=== PATIENT | male | born 1960 | race African-American/Black ===

== ENCOUNTER 2020-01-04 08:05 | Outpatient (CLI) | payer BC, OTHER ==
--- NOTE | 2020-01-04 08:42 | ULT ---
Sonogram right upper quadrant HISTORY: Right upper quadrant pain. FINDINGS: Gallbladder has a normal appearance without stones. No gallbladder wall thickening or peric holecystic fluid. Common duct is 0.4 cm. Liver is diffusely echogenic without focal mass or intrahepatic biliary dilatation. No free fluid. IMPRESSION: No evidence of gallstones or biliary obstruction. Hepatosteatosis.
== END 2020-01-04 08:06 | disposition home or self-care (01) ==
LOC: BICULT 08:05
PROVIDERS: ATTEND Family Medicine
DX: R10.11 Right upper quadrant pain (principal); K76.0 Fatty (change of) liver, not elsewhere classified
CPT/HCPCS: 93975

== ENCOUNTER 2021-02-14 17:36 | Emergency (ER) | payer OTHER ==
[2021-02-14] MEDS ORDERED: Boostrix 0.5 ML (Tdap) VIAL ONE (17:49)
[2021-02-14] MEDS ORDERED: Acetaminophen 500 MG TAB ONE (17:49)
== END 2021-02-14 19:23 | disposition home or self-care (01) ==
LOC: ERS 17:36
DX: S39.012A Strain of muscle, fascia and tendon of lower back, initial encounter (principal); S16.1XXA Strain of muscle, fascia and tendon at neck level, initial encounter; S40.012A Contusion of left shoulder, initial encounter; E11.9 Type 2 diabetes mellitus without complications; R03.0 Elevated blood-pressure reading, without diagnosis of hypertension; Z79.84 Long term (current) use of oral hypoglycemic drugs; Z23 Encounter for immunization; V89.2XXA Person injured in unspecified motor-vehicle accident, traffic, initial encounter
CPT/HCPCS: 71045; 72125; 72128; 72131; 90471; 90715; G0390